=== PATIENT | female | born 1985 | race Caucasian/White ===

== ENCOUNTER 2018-09-23 08:25 | Outpatient (REF) | payer BC, SELFPAY ==
[2018-09-23 22:01] LABS: TSH (W/Ref FT4) 0.42 uIU/mL (0.358-3.74)
== END 2018-09-23 08:45 ==
LOC: LBN 08:25
PROVIDERS: PCP Registered Nurse; Visit Provider Nurse Practitioner Family
DX: E03.9 Hypothyroidism, unspecified (principal)
CPT/HCPCS: 84443

== ENCOUNTER 2021-11-22 15:07 | Outpatient (REF) | payer BC, SELFPAY ==
[2021-11-22 22:49] LABS: Calculated LDL 122 mg/dL (<100); Cholesterol 196 mg/dL (<200); HDL Cholesterol 51 mg/dL (40-60); TSH 12.36 uIU/mL (0.36-3.74); Triglyceride 119 mg/dL (<150)
== END 2021-11-22 15:08 | disposition home or self-care (01) ==
LOC: NCHCN 15:07
PROVIDERS: PCP Registered Nurse; Visit Provider Registered Nurse
DX: Z00.00 Encounter for general adult medical examination without abnormal findings (principal); Z85.850 Personal history of malignant neoplasm of thyroid; Z90.89 Acquired absence of other organs; Z13.220 Encounter for screening for lipoid disorders
CPT/HCPCS: 80061; 84443

== ENCOUNTER 2023-06-05 17:22 | Outpatient (REF) | payer BC, SELFPAY ==
--- NOTE | 2023-06-05 16:30 | PAPFT_PTH ---
PATIENT: Meghna Colbert LOC: [facility]#:[id number] AGE/SX: 37/F ROOM: RE06/05/[address]: Marisa Tidwell : 1985 BED: DIS: 06/05/2023 SPEC #: [id number] RECD: 06/06/23 12:05 STATUS: RON SAL #: [id number] ALANA: 06/05/23 16:[address]: Marisa Tidwell DEPT: [facility] Cytology RECD BY: Riya Reyna Tissues: 1 - CX/ENDOCX FOR PAP SMEARS Procedures: PAP THIN PREP/UVM Screening HPV DNA PROBE Comments: [id number]
[2023-06-05 21:12] LABS: Anion Gap 8.4 mmol/L (3-11); BUN 15 mg/dL (7-18); CO2 26.6 mmol/L (21.0-32.0); CREATININE 1.1 mg/dL (0.55-1.02); Calcium 8.8 mg/dL (8.5-10.1); Chloride 103 mmol/L (98-107); Estimated GFR 65.55 (mL/min/1.73m2); Glucose 84 mg/dL (74-106); Potassium 3.4 mmol/L (3.5-5.1); Sodium 138 mmol/L (136-145); TSH 4.31 uIU/mL (0.36-3.74)
== END 2023-06-05 17:23 | disposition home or self-care (01) ==
LOC: NCHCN 17:22
PROVIDERS: PCP Registered Nurse; Visit Provider Registered Nurse
DX: Z00.00 Encounter for general adult medical examination without abnormal findings (principal); Z13.228 Encounter for screening for other metabolic disorders; Z13.29 Encounter for screening for other suspected endocrine disorder; Z12.4 Encounter for screening for malignant neoplasm of cervix; Z11.51 Encounter for screening for human papillomavirus (HPV)
CPT/HCPCS: 80048; 88142; 84443; 87624

== ENCOUNTER 2023-08-08 18:40 | Outpatient (REF) | payer BC, SELFPAY ==
[2023-08-08 16:03] LABS: Anion Gap 9.8 mmol/L (3-11); BUN 12 mg/dL (7-18); CO2 24.2 mmol/L (21.0-32.0); Calcium 9.2 mg/dL (8.5-10.1); Chloride 104 mmol/L (98-107); Estimated GFR 73.04 (mL/min/1.73m2); Glucose 81 mg/dL (74-106); Potassium 3.8 mmol/L (3.5-5.1); Sodium 138 mmol/L (136-145); TSH 0.94 uIU/mL (0.36-3.74)
--- OUTSIDE RECORDS SUMMARY | 2023-08-08 18:45 | XMS_ITS | Continuity of Care Document ---
Author Name Unknown Organization [facility] Address [address] [place] [address] Phone [phone] Problems Active Problems Provider Date Malignant neoplastic disease Ons et: Active or passive immunization O nset: Medications Active Medications SIG Qnty Indications Ordering Provider Date [id number] Tablets Synthroid( 25mcg Oral 1 tab daily ) Active -Hx Entry Unknown 06/28/2015 Immunizations CPT Code Status Date Vaccine Lot # [id number] Given 03/19/2021 Moderna Covid-19 Vac 12+ [id number] Given 02/20/2021 Moderna Covid-19 Vac 12+ 54036 Given 06/28/2015 Tetanus, Diphth eria Toxoids/Acellular Pertussis Vacc 7 Or > 0.5ML [id number] Given 06/28/2015 MMR Vaccine, Live, For [place] bcutaneous Use 0.5ML
== END 2023-08-08 18:41 | disposition home or self-care (01) ==
LOC: NCHCN 18:40
PROVIDERS: PCP Registered Nurse; Visit Provider Registered Nurse
DX: R94.4 Abnormal results of kidney function studies (principal); Z85.850 Personal history of malignant neoplasm of thyroid
CPT/HCPCS: 80048; 84443